=== PATIENT | female | born 1935 | race Asian ===

== ENCOUNTER 2022-08-19 10:11 | Emergency (ER) | payer OTHER, MEDICAID ==
[~2022-08-19] VITALS: Ht 154.9 cm; Wt 70.8 kg
[2022-08-19 10:34] VITALS: BP_SYST 155
--- NOTE | 2022-08-19 10:39 | NUR ---
PT BIB DAUGHTER IN LAW, AWAKE AND ALERT AOX3, NO SOB. PT C/O PAIN TO BILATERAL LOWER EXTREMITY AFTER A MECHANICAL FALL AT HOME. PT DAUGHTER IN LAW STATED SHE FOUND HER NEXT TO COUGH AT HOME AROUND 0730. PT STATES PAIN 12/03. PT DENIES N/V. PT HAS HX OF DEMENTIAS, DM2, HTN.
--- NOTE | 2022-08-19 10:41 | NUR ---
MD DR COBURN AT BEDSIDE
[2022-08-19] MEDS ORDERED: ACETAMINOPHEN 500 MG TABLET PO ONE (11:00)
[2022-08-19 11:53] LABS: BASOPHILS # (AUTO) 0.1 K/uL (0.0-0.2); EOSINOPHILS # (AUTO) 0.2 K/uL (0.0-0.4); HEMOGLOBIN 13.7 g/dL (12.0-16.0); LYMPHOCYTES # (AUTO) 2.6 K/uL (1.0-5.5); LYMPHOCYTES % (AUTO) 35.5 % (20.5-51.5); MEAN CORPUSCULAR HEMOGLOBIN 30 pg (27-31); MEAN CORPUSCULAR HGB CONC 33 % (32-36); MEAN CORPUSCULAR VOLUME 90 fL (79.0-98.0); MONOCYTES # (AUTO) 0.7 K/uL (0.0-1.0); MONOCYTES % (AUTO) 9.1 % (1.7-9.3); NEUTROPHILS # (AUTO) 3.8 K/uL (1.8-7.7); NEUTROPHILS % (AUTO) 51.4 % (40.0-70.0); PLATELET COUNT (AUTO) 328 K/uL (130-430); RED BLOOD CELL COUNT(AUTO) 4.57 MIL/uL (4.2-6.2); WHITE BLOOD COUNT (AUTO) 7.4 K/uL (4.8-10.8)
[2022-08-19 11:55] LABS: ANION GAP 8 (5-15); CALCIUM 8.6 mg/dL (8.4-11.0); CHLORIDE 99 mmol/L (98-107); CREATININE 0.94 mg/dL (0.55-1.30); GLUCOSE 230 mg/dL (70-99); UREA NITROGEN, BLOOD 16 mg/dL (8-21)
[2022-08-19 12:00] LABS: ALANINE AMINOTRANSFERASE 13 U/L (12-78); ALBUMIN 3.6 g/dL (3.4-4.8); ASPARTATE AMINOTRANSFERASE 23 U/L (10-37); TOTAL BILIRUBIN 0.6 mg/dL (0.0-1.0)
[2022-08-19 12:19] LABS: BILIRUBIN,URINE NEGATIVE (NEGATIVE); BLOOD, URINE NEGATIVE (NEGATIVE); CLARITY/URINE CLEAR (CLEAR); COLOR,URINE YELLOW (YELLOW); GLUCOSE,URINE 3+ (NEGATIVE); KETONES,URINE NEGATIVE (NEGATIVE); LEUKOCYTE ESTERASE ,URINE NEGATIVE (NEGATIVE); NITRITE, URINE NEGATIVE (NEGATIVE); PROTEIN URINE NEGATIVE (NEGATIVE); UROBILINOGEN,URINE 0.2 (0.2-1.0)
[2022-08-19 12:31] LABS: BACTERIA,URINE RARE /HPF (None Seen); RBC,URINE NONE SEEN /HPF (0-3); WBC,URINE 0-3 /HPF (0-3)
[2022-08-19 14:15] VITALS: BP_SYST 135
--- NOTE | 2022-08-19 14:16 | NUR ---
Patient given written and verbal discharge instructions and verbalizes understanding. ER MD COBURN discussed with patient the results and treatment provided. Patient in stable condition. ID arm band removed. Patient educated on pain management and to follow up with PMD. Pain Scale 4/10. Opportunity for questions provided and answered. Medication side effect fact sheet provided.
--- NOTE | 2022-08-20 19:07 | NUR ---
CALL AND LEFT VM FOR RETURN TO ER DUE TO POSITIVE BLOOD CULTURES.
== END 2022-08-19 14:16 | disposition home or self-care (01) ==
LOC: SED 10:11
DX: Z04.3 Encounter for examination and observation following other accident (principal); E11.9 Type 2 diabetes mellitus without complications; I10 Essential (primary) hypertension; E78.5 Hyperlipidemia, unspecified; Z79.899 Other long term (current) drug therapy
CPT/HCPCS: 36415; 70450-TC; 71045; 72125-TC; 72192-TC; 76376; 80053; 81000; 83605; 85025; 87040; 87186-TC; 93005; 99285

== ENCOUNTER 2022-10-17 18:20 | Inpatient (IN) | payer OTHER, MEDICAID ==
[~2022-10-17] VITALS: Ht 160 cm; Wt 73.5 kg
[2022-10-17 18:36] VITALS: BP_SYST 133; PULSE 99; RESP 16; TEMP 97.8; O2SAT 97
[2022-10-17 20:34] LABS: BASOPHILS # (AUTO) 0.1 K/uL (0.0-0.2); BASOPHILS % (AUTO) 0.6 % (0.0-2.0); EOSINOPHILS # (AUTO) 0.2 K/uL (0.0-0.4); EOSINOPHILS % (AUTO) 1.9 % (0.0-4.0); HEMATOCRIT 39.2 % (36-48); LYMPHOCYTES # (AUTO) 2.4 K/uL (1.0-5.5); LYMPHOCYTES % (AUTO) 22.1 % (20.5-51.5); MEAN CORPUSCULAR HEMOGLOBIN 29 pg (27-31); MEAN CORPUSCULAR HGB CONC 33 % (32-36); MEAN CORPUSCULAR VOLUME 88 fL (79.0-98.0); MONOCYTES # (AUTO) 0.9 K/uL (0.0-1.0); NEUTROPHILS # (AUTO) 7.3 K/uL (1.8-7.7); NEUTROPHILS % (AUTO) 67.4 % (40.0-70.0); PLATELET COUNT (AUTO) 310 K/uL (130-430); RED BLOOD CELL COUNT(AUTO) 4.44 MIL/uL (4.2-6.2); WHITE BLOOD COUNT (AUTO) 10.9 K/uL (4.8-10.8)
[2022-10-17 20:42] LABS: ANION GAP 12 (5-15); CALCIUM 8.8 mg/dL (8.4-11.0); CHLORIDE 100 mmol/L (98-107); CREATININE 1.29 mg/dL (0.55-1.30); GLUCOSE 199 mg/dL (70-99); UREA NITROGEN, BLOOD 25 mg/dL (8-21)
[2022-10-17 20:49] LABS: ALANINE AMINOTRANSFERASE 92 U/L (12-78); ALBUMIN 3.6 g/dL (3.4-4.8); ASPARTATE AMINOTRANSFERASE 162 U/L (10-37); TOTAL BILIRUBIN 0.9 mg/dL (0.0-1.0)
[2022-10-17 20:55] LABS: BLOOD, URINE 2+ (NEGATIVE); CLARITY/URINE CLEAR (CLEAR); COLOR,URINE YELLOW (YELLOW); GLUCOSE,URINE 3+ (NEGATIVE); KETONES,URINE 1+ (NEGATIVE); LEUKOCYTE ESTERASE ,URINE NEGATIVE (NEGATIVE); NITRITE, URINE NEGATIVE (NEGATIVE); PH,URINE 5.5 (5.0-8.0); PROTEIN URINE TRACE (NEGATIVE); UROBILINOGEN,URINE 0.2 (0.2-1.0)
[2022-10-17 20:57] LABS: BILIRUBIN,URINE 1+ (NEGATIVE)
[2022-10-17 20:58] LABS: BACTERIA,URINE FEW /HPF (None Seen); FINE GRANULAR CASTS,URINE 0-10 /LPF (None Seen); MUCUS,URINE None Seen /LPF (None Seen); RBC,URINE NONE SEEN /HPF (0-3); WBC,URINE 0-3 /HPF (0-3)
[2022-10-17] MEDS ORDERED: NACL 0.9% 1,000 ML IV ONE (21:00)
[2022-10-17] MEDS ORDERED: D5/0.45 NS 1,000 ML IV ONE (22:30)
[2022-10-18] VITALS (7 sets, daily range): BP systolic 122–131; PULSE 80–90; RESP 18–20; TEMP 96.9–97.2; O2SAT 97–100
[2022-10-18] MEDS ORDERED: ONDANSETRON HCL 4 MG/2 ML VIAL IVP PRN (05:00)
[2022-10-18] MEDS: LORazepam 2 MG/ML VIAL IVP PRN ×2 (10:31→20:24)
[2022-10-19] VITALS (7 sets, daily range): BP systolic 100–149; PULSE 75–91; RESP 14–20; TEMP 96.6–98; O2SAT 92–96
[2022-10-19 06:00] LABS: BASOPHILS # (AUTO) 0.1 K/uL (0.0-0.2); BASOPHILS % (AUTO) 0.9 % (0.0-2.0); EOSINOPHILS # (AUTO) 0.3 K/uL (0.0-0.4); EOSINOPHILS % (AUTO) 3.9 % (0.0-4.0); HEMATOCRIT 40.9 % (36-48); HEMOGLOBIN 13.5 g/dL (12.0-16.0); LYMPHOCYTES # (AUTO) 2.2 K/uL (1.0-5.5); MEAN CORPUSCULAR HEMOGLOBIN 29 pg (27-31); MEAN CORPUSCULAR HGB CONC 33 % (32-36); MEAN CORPUSCULAR VOLUME 89 fL (79.0-98.0); MONOCYTES # (AUTO) 0.8 K/uL (0.0-1.0); NEUTROPHILS # (AUTO) 5.1 K/uL (1.8-7.7); NEUTROPHILS % (AUTO) 60.2 % (40.0-70.0); PLATELET COUNT (AUTO) 328 K/uL (130-430); RED CELL DISTRIBUTION WIDTH 14.9 % (9.0-15.0); WHITE BLOOD COUNT (AUTO) 8.4 K/uL (4.8-10.8)
[2022-10-19 06:34] LABS: ALANINE AMINOTRANSFERASE 77 U/L (12-78); ALBUMIN 3.3 g/dL (3.4-4.8); ANION GAP 13 (5-15); ASPARTATE AMINOTRANSFERASE 85 U/L (10-37); CALCIUM 8.6 mg/dL (8.4-11.0); CHLORIDE 99 mmol/L (98-107); CREATININE 0.71 mg/dL (0.55-1.30); GLUCOSE 132 mg/dL (70-99); PHOSPHORUS 2.5 mg/dL (2.7-4.5); TOTAL BILIRUBIN 0.8 mg/dL (0.0-1.0); UREA NITROGEN, BLOOD 6 mg/dL (8-21)
[2022-10-19] MEDS ORDERED: K PHOS 30 MM in NS 250 ML IV ONE (15:00)
[2022-10-20 01:51] VITALS: BP_SYST 107; PULSE 95; RESP 16; TEMP 98.6; O2SAT 91
[2022-10-20 05:25] LABS: BASOPHILS # (AUTO) 0.1 K/uL (0.0-0.2); BASOPHILS % (AUTO) 0.7 % (0.0-2.0); EOSINOPHILS # (AUTO) 0.1 K/uL (0.0-0.4); EOSINOPHILS % (AUTO) 1.2 % (0.0-4.0); HEMOGLOBIN 13.7 g/dL (12.0-16.0); LYMPHOCYTES # (AUTO) 1.6 K/uL (1.0-5.5); LYMPHOCYTES % (AUTO) 17.5 % (20.5-51.5); MEAN CORPUSCULAR HEMOGLOBIN 29 pg (27-31); MEAN CORPUSCULAR HGB CONC 33 % (32-36); MEAN CORPUSCULAR VOLUME 90 fL (79.0-98.0); MONOCYTES % (AUTO) 11.1 % (1.7-9.3); NEUTROPHILS # (AUTO) 6.5 K/uL (1.8-7.7); NEUTROPHILS % (AUTO) 69.5 % (40.0-70.0); PLATELET COUNT (AUTO) 335 K/uL (130-430); RED BLOOD CELL COUNT(AUTO) 4.69 MIL/uL (4.2-6.2); RED CELL DISTRIBUTION WIDTH 15.2 % (9.0-15.0); WHITE BLOOD COUNT (AUTO) 9.3 K/uL (4.8-10.8)
[2022-10-20 05:52] LABS: ALANINE AMINOTRANSFERASE 61 U/L (12-78); ANION GAP 18 (5-15); ASPARTATE AMINOTRANSFERASE 45 U/L (10-37); CALCIUM 8.1 mg/dL (8.4-11.0); CHLORIDE 101 mmol/L (98-107); CREATININE 0.96 mg/dL (0.55-1.30); GLUCOSE 113 mg/dL (70-99); TOTAL BILIRUBIN 0.7 mg/dL (0.0-1.0); UREA NITROGEN, BLOOD 12 mg/dL (8-21)
[2022-10-20 08:07] LABS: FOLATE (FOLIC ACID) >20.0 ng/mL (>3.0)
[2022-10-20] MEDS ORDERED: CHOL500052 PO (08:12)
[2022-10-20] MEDS ORDERED: QUET50TA24 PO (08:12)
[2022-10-20] MEDS ORDERED: AMLO5TAB92 PO (08:12)
[2022-10-20] MEDS ORDERED: BIMA2.5D5 EACH EYE (08:12)
[2022-10-20] MEDS ORDERED: ATOR10TA68 PO (08:12)
[2022-10-20] MEDS ORDERED: SITA100T11 PO (08:12)
[2022-10-20] MEDS ORDERED: RISP1TAB98 PO (08:12)
[2022-10-20] MEDS ORDERED: METF-381 PO (08:12)
[2022-10-20] MEDS ORDERED: EMPA10TA PO (08:12)
[2022-10-20] MEDS ORDERED: DORZ10DR10 EACH EYE (08:12)
[2022-10-20] MEDS ORDERED: GLIP2.5T3 PO (08:12)
[2022-10-20] MEDS ORDERED: MEMA14CA5 PO (08:12)
[2022-10-20] MEDS: LORazepam 2 MG/ML VIAL IVP PRN ×2 (09:11→23:22)
[2022-10-20] MEDS: 0.45% NACL 1,000 ML IV SCH ×2 (11:30→20:05)
[2022-10-20 12:46] VITALS: BP_SYST 139; PULSE 105; RESP 18; TEMP 97.3
[2022-10-20 13:18] VITALS: O2SAT 96
[2022-10-20 14:06] LABS: ANTI NUCLEAR AB WITH REFLEX Negative (Negative)
[2022-10-20 16:49] VITALS: BP_SYST 131; PULSE 100; RESP 17; TEMP 97.9; O2SAT 96
[2022-10-20 22:00] VITALS: O2SAT 95
[2022-10-21 01:09] VITALS: BP_SYST 146; PULSE 92; RESP 17; TEMP 97.6; O2SAT 94
[2022-10-21] MEDS: 0.45% NACL 1,000 ML IV SCH ×2 (05:34→14:37)
[2022-10-21 05:39] LABS: ANION GAP 15 (5-15); CALCIUM 8.4 mg/dL (8.4-11.0); CHLORIDE 103 mmol/L (98-107); CREATININE 0.99 mg/dL (0.55-1.30); GLUCOSE 135 mg/dL (70-99); UREA NITROGEN, BLOOD 13 mg/dL (8-21)
[2022-10-21] MEDS: LORazepam 2 MG/ML VIAL IVP PRN (05:49)
[2022-10-21 06:03] LABS: BASOPHILS # (AUTO) 0.1 K/uL (0.0-0.2); BASOPHILS % (AUTO) 0.5 % (0.0-2.0); EOSINOPHILS # (AUTO) 0.1 K/uL (0.0-0.4); EOSINOPHILS % (AUTO) 0.6 % (0.0-4.0); HEMATOCRIT 41.8 % (36-48); HEMOGLOBIN 13.8 g/dL (12.0-16.0); LYMPHOCYTES # (AUTO) 1.7 K/uL (1.0-5.5); LYMPHOCYTES % (AUTO) 15.5 % (20.5-51.5); MEAN CORPUSCULAR HEMOGLOBIN 29 pg (27-31); MEAN CORPUSCULAR HGB CONC 33 % (32-36); MEAN CORPUSCULAR VOLUME 89 fL (79.0-98.0); MONOCYTES # (AUTO) 1.7 K/uL (0.0-1.0); MONOCYTES % (AUTO) 15.7 % (1.7-9.3); NEUTROPHILS # (AUTO) 7.2 K/uL (1.8-7.7); NEUTROPHILS % (AUTO) 67.7 % (40.0-70.0); PLATELET COUNT (AUTO) 326 K/uL (130-430); WHITE BLOOD COUNT (AUTO) 10.7 K/uL (4.8-10.8)
[2022-10-21 07:10] VITALS: BP_SYST 154; PULSE 82; RESP 16; TEMP 97.8; O2SAT 97
[2022-10-21 07:20] VITALS: O2SAT 96
[2022-10-21] MEDS ORDERED: MEMANTINE HCL 7 MG CAP.SPR.24 PO SCH (10:00)
[2022-10-21 12:00] VITALS: BP_SYST 161; PULSE 99; RESP 17; TEMP 97.1; O2SAT 98
[2022-10-21] MEDS ORDERED: amLODIPine BESYLATE 5 MG TABLET PO ONE (12:00)
[2022-10-21] MEDS ORDERED: EMPAGLIFLOZIN 10 MG TABLET PO ONE (12:00)
[2022-10-21] MEDS ORDERED: glipiZIDE XL 2.5 MG/TAB (GLUCOTROL XL) PO ONE (12:00)
[2022-10-21] MEDS ORDERED: CHOLECALCIFEROL (VITAMIN D3) 5,000 UNIT TABLET PO ONE (12:00)
[2022-10-21 16:14] VITALS: BP_SYST 135; PULSE 88; RESP 16; TEMP 97.1; O2SAT 97
[2022-10-21 20:00] VITALS: BP_SYST 138; PULSE 101; RESP 19; TEMP 97.8; O2SAT 94
[2022-10-21] MEDS ORDERED: ATORVASTATIN 10 MG TABLET PO SCH (21:00)
[2022-10-21] MEDS ORDERED: QUEtiapine FUMARATE 25 MG TABLET PO SCH (21:00)
[2022-10-21] MEDS ORDERED: risperiDONE 1 MG TABLET (RisperDAL) PO SCH (21:00)
[2022-10-21] MEDS: MEMANTINE HCL 5 MG TABLET PO SCH (22:09)
[2022-10-21] MEDS: metFORMIN HCL 500 MG TABLET PO SCH (22:09)
[2022-10-22] VITALS (7 sets, daily range): BP systolic 98–154; PULSE 100–105; RESP 16–18; TEMP 97.6–99.3; O2SAT 94–99
[2022-10-22] MEDS: 0.45% NACL 1,000 ML IV SCH (04:02)
[2022-10-22] MEDS ORDERED: PANTOPRAZOLE SODIUM 40 MG/VIAL (PROTONIX) IVP SCH (05:30)
[2022-10-22] MEDS: D5/0.45 NS 1,000 ML IV SCH ×2 (05:37→14:25)
[2022-10-22 06:22] LABS: BASOPHILS # (AUTO) 0.1 K/uL (0.0-0.2); BASOPHILS % (AUTO) 0.7 % (0.0-2.0); HEMATOCRIT 44.4 % (36-48); HEMOGLOBIN 14.5 g/dL (12.0-16.0); LYMPHOCYTES # (AUTO) 1.2 K/uL (1.0-5.5); LYMPHOCYTES % (AUTO) 8.2 % (20.5-51.5); MEAN CORPUSCULAR HEMOGLOBIN 30 pg (27-31); MEAN CORPUSCULAR HGB CONC 33 % (32-36); MEAN CORPUSCULAR VOLUME 91 fL (79.0-98.0); NEUTROPHILS # (AUTO) 12.1 K/uL (1.8-7.7); NEUTROPHILS % (AUTO) 84.1 % (40.0-70.0); PLATELET COUNT (AUTO) 373 K/uL (130-430); RED BLOOD CELL COUNT(AUTO) 4.88 MIL/uL (4.2-6.2); RED CELL DISTRIBUTION WIDTH 15.5 % (9.0-15.0); WHITE BLOOD COUNT (AUTO) 14.4 K/uL (4.8-10.8)
[2022-10-22 06:32] LABS: ANION GAP 26 (5-15); CALCIUM 9.1 mg/dL (8.4-11.0); CHLORIDE 96 mmol/L (98-107); CREATININE 1.07 mg/dL (0.55-1.30); GLUCOSE 150 mg/dL (74-106); UREA NITROGEN, BLOOD 14 mg/dL (8-21)
[2022-10-22] MEDS ORDERED: amLODIPine BESYLATE 5 MG TABLET PO SCH (09:00)
[2022-10-22] MEDS ORDERED: glipiZIDE XL 2.5 MG/TAB (GLUCOTROL XL) PO SCH (09:00)
[2022-10-22] MEDS ORDERED: EMPAGLIFLOZIN 10 MG TABLET PO SCH (09:00)
[2022-10-22] MEDS: MEMANTINE HCL 5 MG TABLET PO SCH (09:00)
[2022-10-22] MEDS ORDERED: CHOLECALCIFEROL (VITAMIN D3) 5,000 UNIT TABLET PO SCH (09:00)
[2022-10-22] MEDS: metFORMIN HCL 500 MG TABLET PO SCH (09:00)
[2022-10-22] MEDS ORDERED: COMMUNICATION ORDER XX ONE (10:15)
== END 2022-10-22 21:10 | DRG 641 ==
LOC: SED 18:20 → SMU 22:28
PROVIDERS: ADMIT Preventive Medicine Preventive Medicine/Occupational Environmental Medicine; ATTEND Specialist
PROC: 4A10X4Z Monitoring of Central Nervous Electrical Activity, External Approach (ICD-10-PCS; principal; 2022-10-21)
DX: E86.0 Dehydration (principal); E78.5 Hyperlipidemia, unspecified; F03.90 Unspecified dementia, unspecified severity, without behavioral disturbance, psychotic disturbance, mood disturbance, and anxiety; I10 Essential (primary) hypertension; R13.10 Dysphagia, unspecified; E87.6 Hypokalemia; K76.0 Fatty (change of) liver, not elsewhere classified; E11.65 Type 2 diabetes mellitus with hyperglycemia; D72.829 Elevated white blood cell count, unspecified; R62.7 Adult failure to thrive; Z91.81 History of falling; Z68.28 Body mass index [BMI] 28.0-28.9, adult
CPT/HCPCS: 36415; 70450-TC; 70551; 71045; 72170-TC; 76376; 76700-TC; 80048; 80053; 81000; 82607; 82746; 82962; 83735; 83880; 84100; 84484; 85025; 86038; 92610-GN; 93005; 95816; 96360; 97110-GP; 99285; C9113; J2060; J7030; J7050

== ENCOUNTER 2022-10-31 07:04 | Inpatient (IN) | payer OTHER, MEDICAID ==
[~2022-10-31] VITALS: Ht 160 cm; Wt 71.7 kg
[2022-10-31] VITALS (16 sets, daily range): BP systolic 104–136; PULSE 79–116; RESP 16–26; TEMP 97.2–98.4; O2SAT 94–99
[~2022-10-31 07:04] MED LIST: AMLO5TAB92 PO; ATOR10TA68 PO; BIMA2.5D5 EACH EYE; CHOL500052 PO; DORZ10DR10 EACH EYE; EMPA10TA PO; GLIP2.5T3 PO; MEMA14CA5 PO; METF-381 PO; QUET50TA24 PO; RISP1TAB98 PO; SITA100T11 PO
[2022-10-31 07:43] LABS: BASOPHILS % (AUTO) 0.2 % (0.0-2.0); HEMATOCRIT 43.4 % (36-48); HEMOGLOBIN 13.2 g/dL (12.0-16.0); LYMPHOCYTES % (AUTO) 6.3 % (20.5-51.5); MEAN CORPUSCULAR HEMOGLOBIN 28 pg (27-31); MEAN CORPUSCULAR HGB CONC 31 % (32-36); MEAN CORPUSCULAR VOLUME 92 fL (79.0-98.0); MONOCYTES # (AUTO) 1.2 K/uL (0.0-1.0); MONOCYTES % (AUTO) 7.7 % (1.7-9.3); NEUTROPHILS # (AUTO) 13.4 K/uL (1.8-7.7); NEUTROPHILS % (AUTO) 85.8 % (40.0-70.0); PLATELET COUNT (AUTO) 394 K/uL (130-430); RED BLOOD CELL COUNT(AUTO) 4.69 MIL/uL (4.2-6.2); RED CELL DISTRIBUTION WIDTH 17.6 % (9.0-15.0); WHITE BLOOD COUNT (AUTO) 15.6 K/uL (4.8-10.8)
[2022-10-31 07:55] LABS: INR 1.1 (0.8-1.2)
[2022-10-31 08:00] LABS: ALANINE AMINOTRANSFERASE 18 U/L (12-78); ALBUMIN 2.7 g/dL (3.4-4.8); ASPARTATE AMINOTRANSFERASE 18 U/L (10-37); CALCIUM 8.5 mg/dL (8.4-11.0); CARBON DIOXIDE 20 mmol/L (23-29); CREATINE KINASE, TOTAL 114 U/L (26-192); CREATININE 3.54 mg/dL (0.55-1.30); SALICYLATE 3 mg/dL (3-30); TOTAL BILIRUBIN 0.5 mg/dL (0.0-1.0); TOTAL PROTEIN, SERUM 6.8 g/dL (6.4-8.3); UREA NITROGEN, BLOOD 84 mg/dL (8-21)
[2022-10-31 08:48] LABS: POTASSIUM 4.9 mmol/L (3.5-5.1)
[2022-10-31 08:49] LABS: BILIRUBIN,URINE NEGATIVE (NEGATIVE); BLOOD, URINE NEGATIVE (NEGATIVE); CLARITY/URINE CLEAR (CLEAR); COLOR,URINE YELLOW (YELLOW); GLUCOSE,URINE 3+ (NEGATIVE); KETONES,URINE TRACE (NEGATIVE); LEUKOCYTE ESTERASE ,URINE NEGATIVE (NEGATIVE); NITRITE, URINE NEGATIVE (NEGATIVE); PROTEIN URINE TRACE (NEGATIVE); UROBILINOGEN,URINE 0.2 (0.2-1.0)
[2022-10-31] MEDS ORDERED: PIPERACILLIN/TAZO 4.5GM/DEX-IS 100 ML IV SCH (09:00)
[2022-10-31] MEDS ORDERED: NACL 0.9% 1,000 ML IV PRN (09:00)
[2022-10-31] MEDS ORDERED: VANCOMYCIN HCL 1,000 MG in NS 250 ML IV ONE (09:15)
[2022-10-31] MEDS ORDERED: VANCOMYCIN HCL 1000 MG/VIAL IV ONE (09:26)
[2022-10-31 09:27] LABS: CHLORIDE 120 mmol/L (98-107)
[2022-10-31 09:28] LABS: BARBITURATE, URINE NEGATIVE (NEG <=200)
[2022-10-31 09:29] LABS: BENZODIAZEPINE, URINE NEGATIVE (NEG <=150); CANNABINOID, URINE NEGATIVE (NEG <=50); COCAINE, URINE NEGATIVE (NEG <=150); METHAMPHETAMINES SCREEN,URINE NEGATIVE (NEG <=500); OPIATE, URINE NEGATIVE (NEG <=100); PHENCYCLIDINE SCREEN,URINE NEGATIVE (NEG <=25); URINE AMPHETAMINE NEGATIVE (NEG <=500); URINE METHADONE NEGATIVE (NEG <=200); URINE OXYCODONE SCREEN NEGATIVE (NEG <=100); URINE PROPOXYPHENE SCREEN NEGATIVE (NEG <=300)
[2022-10-31 09:34] LABS: UR TRICYCLIC ANTIDEPRESSANTS POSITIVE (NEG <=300)
[2022-10-31 09:36] LABS: ACETAMINOPHEN < 1 ug/mL (1-30); ALCOHOL, BLOOD < 3 mg/dL (<10)
[2022-10-31] MEDS ORDERED: NACL 0.9% 1,000 ML IV ONE (10:00)
[2022-10-31 10:19] LABS: ANION GAP 25 (5-15); SODIUM SERUM 165 mmol/L (136-145)
[2022-10-31 10:20] LABS: GLUCOSE 638 mg/dL (74-106)
[2022-10-31 10:25] LABS: ACETONE, SERUM MODERATE (NEGATIVE)
[2022-10-31 10:34] LABS: RBC,URINE 0-3 /HPF (0-3)
[2022-10-31 10:35] LABS: BACTERIA,URINE MODERATE /HPF (None Seen)
[2022-10-31 10:38] LABS: YEAST,URINE Few /HPF (None Seen)
[2022-10-31 10:39] LABS: MUCUS,URINE None Seen /LPF (None Seen)
[2022-10-31] MEDS ORDERED: INSULIN REGULAR, HUMAN 10 UNITS/0.1 ML, 3 ML VIAL IVP ONE (10:45)
[2022-10-31] MEDS ORDERED: DEXTROSE 50% JECT 50 ML DISP.SYRIN IVP PRN (12:15)
[2022-10-31] MEDS ORDERED: 0.45% NACL 1,000 ML IV ONE (12:30)
[2022-10-31 14:24] LABS: BLOOD GAS PCO2 33.5 mmHg (35.0-45.0); BLOOD GAS PH 7.347 (7.350-7.450); BLOOD GAS PO2 73.2 mmHg (75.0-100.0)
[2022-10-31 14:25] LABS: BLOOD GAS BASE EXCESS -6.6 mmol/L (-3.0-3.0)
[2022-10-31 14:26] LABS: ABG O2 SAT% ESTIMATE 94.2 % (94.0-100.0); ALLEN'S TEST POSITIVE (P)
[2022-10-31 14:29] LABS: ANION GAP 24 (5-15); CALCIUM 8.2 mg/dL (8.4-11.0); CARBON DIOXIDE 18 mmol/L (23-29); CREATININE 3.45 mg/dL (0.55-1.30); UREA NITROGEN, BLOOD 83 mg/dL (8-21)
[2022-10-31] MEDS ORDERED: ONDANSETRON HCL 4 MG/2 ML VIAL IVP PRN (14:30)
[2022-10-31] MEDS ORDERED: ACETAMINOPHEN 650 MG SUPP.RECT RC PRN (14:30)
[2022-10-31] MEDS ORDERED: KCL 20 mEq in 0.45% NS 1000 mL 1,000 ML IV PRN (14:45)
[2022-10-31] MEDS: INSULIN REGULAR, HUMAN 100 UNITS in NS 99 ML IV PRN ×2 (14:47)
[2022-10-31 14:49] LABS: CHLORIDE 122 mmol/L (98-107)
[2022-10-31 14:50] LABS: GLUCOSE 567 mg/dL (74-106); SODIUM SERUM 164 mmol/L (136-145)
[2022-10-31] MEDS: DORZOLAMIDE HCL/TIMOLOL MAL. 10 ML EYE DROPS (COSOPT) EACH EYE SCH ×2 (16:39→20:21)
[2022-10-31] MEDS: KCL 20 mEq in 0.45% NS 1000 mL 1,000 ML IV SCH (16:44)
[2022-10-31 16:45] LABS: ANION GAP 18 (5-15); CALCIUM 8.7 mg/dL (8.4-11.0); CARBON DIOXIDE 20 mmol/L (23-29); CREATININE 3.42 mg/dL (0.55-1.30); POTASSIUM 3.8 mmol/L (3.5-5.1); UREA NITROGEN, BLOOD 87 mg/dL (8-21)
[2022-10-31 17:18] LABS: CHLORIDE 124 mmol/L (98-107); GLUCOSE 485 mg/dL (74-106); SODIUM SERUM 162 mmol/L (136-145)
[2022-10-31] MEDS ORDERED: PIPERACILLIN/TAZO 3.375/DEX-IS 50 ML IV SCH (18:00)
[2022-10-31] MEDS: ENOXAPARIN SODIUM 30 MG/0.3 ML SYRINGE SUBCUT SCH (20:18)
[2022-10-31] MEDS: PANTOPRAZOLE SODIUM 40 MG/VIAL (PROTONIX) IVP SCH (20:18)
[2022-10-31] MEDS: LATANOPROST 2.5 ML DROPS (XALATAN) EACH EYE SCH (20:22)
[2022-10-31] MEDS: PIPERACILLIN/TAZOBACTAM 2.25 GM/ DEX-IS 50 ML PREMIX IV SCH (20:22)
[2022-10-31] MEDS ORDERED: BIMATOPROST 0.01%, 2.5 ML EYE DROPS EACH EYE SCH (21:00)
[2022-10-31 21:22] LABS: ANION GAP 12 (5-15); CALCIUM 8.7 mg/dL (8.4-11.0); CARBON DIOXIDE 23 mmol/L (23-29); CREATININE 3.08 mg/dL (0.55-1.30); GLUCOSE 237 mg/dL (74-106); POTASSIUM 3.8 mmol/L (3.5-5.1); UREA NITROGEN, BLOOD 83 mg/dL (8-21)
[2022-10-31 21:25] LABS: CHLORIDE 127 mmol/L (98-107); SODIUM SERUM 162 mmol/L (136-145)
[2022-11-01] VITALS (22 sets, daily range): BP systolic 98–181; PULSE 67–97; RESP 15–28; TEMP 96.4–98.4; O2SAT 92–99
[2022-11-01] MEDS: KCL 20 mEq in 0.45% NS 1000 mL 1,000 ML IV SCH ×3 (01:01→23:49)
[2022-11-01 01:24] LABS: ANION GAP 12 (5-15); CALCIUM 8.6 mg/dL (8.4-11.0); CARBON DIOXIDE 24 mmol/L (23-29); CREATININE 3.04 mg/dL (0.55-1.30); GLUCOSE 233 mg/dL (74-106); POTASSIUM 3.9 mmol/L (3.5-5.1); UREA NITROGEN, BLOOD 83 mg/dL (8-21)
[2022-11-01 01:31] LABS: CHLORIDE 128 mmol/L (98-107); SODIUM SERUM 164 mmol/L (136-145)
[2022-11-01] MEDS: PIPERACILLIN/TAZOBACTAM 2.25 GM/ DEX-IS 50 ML PREMIX IV SCH ×3 (05:10→23:50)
[2022-11-01 05:20] LABS: BASOPHILS # (AUTO) 0.1 K/uL (0.0-0.2); BASOPHILS % (AUTO) 0.4 % (0.0-2.0); HEMATOCRIT 42.5 % (36-48); HEMOGLOBIN 13.4 g/dL (12.0-16.0); LYMPHOCYTES # (AUTO) 1.6 K/uL (1.0-5.5); MEAN CORPUSCULAR HEMOGLOBIN 29 pg (27-31); MEAN CORPUSCULAR HGB CONC 32 % (32-36); MEAN CORPUSCULAR VOLUME 91 fL (79.0-98.0); MONOCYTES # (AUTO) 1.7 K/uL (0.0-1.0); MONOCYTES % (AUTO) 8.2 % (1.7-9.3); NEUTROPHILS # (AUTO) 17.2 K/uL (1.8-7.7); NEUTROPHILS % (AUTO) 83.4 % (40.0-70.0); PLATELET COUNT (AUTO) 305 K/uL (130-430); RED BLOOD CELL COUNT(AUTO) 4.68 MIL/uL (4.2-6.2); RED CELL DISTRIBUTION WIDTH 17.4 % (9.0-15.0); WHITE BLOOD COUNT (AUTO) 20.6 K/uL (4.8-10.8)
[2022-11-01 05:51] LABS: ALANINE AMINOTRANSFERASE 25 U/L (12-78); ALBUMIN 2.1 g/dL (3.4-4.8); ANION GAP 14 (5-15); ASPARTATE AMINOTRANSFERASE 35 U/L (10-37); CALCIUM 8.3 mg/dL (8.4-11.0); CARBON DIOXIDE 23 mmol/L (23-29); CREATININE 2.97 mg/dL (0.55-1.30); GLUCOSE 229 mg/dL (74-106); POTASSIUM 3.6 mmol/L (3.5-5.1); TOTAL BILIRUBIN 0.5 mg/dL (0.0-1.0); TOTAL PROTEIN, SERUM 6.4 g/dL (6.4-8.3); UREA NITROGEN, BLOOD 85 mg/dL (8-21)
[2022-11-01 05:54] LABS: CHLORIDE 127 mmol/L (98-107); SODIUM SERUM 164 mmol/L (136-145)
[2022-11-01] MEDS: INSULIN REGULAR, HUMAN 100 UNITS in NS 99 ML IV PRN ×10 (08:58→23:59)
[2022-11-01] MEDS: PANTOPRAZOLE SODIUM 40 MG/VIAL (PROTONIX) IVP SCH ×2 (10:44→23:47)
[2022-11-01] MEDS: DORZOLAMIDE HCL/TIMOLOL MAL. 10 ML EYE DROPS (COSOPT) EACH EYE SCH ×3 (10:45→23:00)
[2022-11-01 14:38] LABS: ANION GAP 16 (5-15); CALCIUM 8.4 mg/dL (8.4-11.0); CARBON DIOXIDE 22 mmol/L (23-29); CREATININE 2.94 mg/dL (0.55-1.30); GLUCOSE 222 mg/dL (74-106); POTASSIUM 3.8 mmol/L (3.5-5.1); UREA NITROGEN, BLOOD 87 mg/dL (8-21)
[2022-11-01 14:49] LABS: CHLORIDE 126 mmol/L (98-107); SODIUM SERUM 164 mmol/L (136-145)
[2022-11-01] MEDS: LATANOPROST 2.5 ML DROPS (XALATAN) EACH EYE SCH (21:00)
[2022-11-01 22:22] LABS: ANION GAP 14 (5-15); CALCIUM 8.5 mg/dL (8.4-11.0); CARBON DIOXIDE 24 mmol/L (23-29); CREATININE 2.84 mg/dL (0.55-1.30); GLUCOSE 234 mg/dL (74-106); POTASSIUM 3.5 mmol/L (3.5-5.1); UREA NITROGEN, BLOOD 82 mg/dL (8-21)
[2022-11-01 22:24] LABS: CHLORIDE 126 mmol/L (98-107); SODIUM SERUM 164 mmol/L (136-145)
[2022-11-01] MEDS: CARVEDILOL 12.5 MG TABLET (COREG) NG SCH (23:47)
[2022-11-01] MEDS: ENOXAPARIN SODIUM 30 MG/0.3 ML SYRINGE SUBCUT SCH (23:48)
[2022-11-02] VITALS (24 sets, daily range): BP systolic 89–132; PULSE 56–77; RESP 11–24; TEMP 98.2–98.6; O2SAT 91–100
[2022-11-02 04:36] LABS: BASOPHILS # (AUTO) 0.1 K/uL (0.0-0.2); BASOPHILS % (AUTO) 0.5 % (0.0-2.0); EOSINOPHILS # (AUTO) 0.1 K/uL (0.0-0.4); EOSINOPHILS % (AUTO) 0.5 % (0.0-4.0); HEMATOCRIT 38.3 % (36-48); LYMPHOCYTES # (AUTO) 1.6 K/uL (1.0-5.5); LYMPHOCYTES % (AUTO) 8.3 % (20.5-51.5); MEAN CORPUSCULAR HEMOGLOBIN 28 pg (27-31); MEAN CORPUSCULAR HGB CONC 31 % (32-36); MEAN CORPUSCULAR VOLUME 91 fL (79.0-98.0); MONOCYTES % (AUTO) 5.4 % (1.7-9.3); NEUTROPHILS # (AUTO) 16.2 K/uL (1.8-7.7); NEUTROPHILS % (AUTO) 85.3 % (40.0-70.0); PLATELET COUNT (AUTO) 240 K/uL (130-430); RED BLOOD CELL COUNT(AUTO) 4.21 MIL/uL (4.2-6.2); RED CELL DISTRIBUTION WIDTH 17.2 % (9.0-15.0)
[2022-11-02 04:55] LABS: ANION GAP 13 (5-15); CALCIUM 8.5 mg/dL (8.4-11.0); CARBON DIOXIDE 22 mmol/L (23-29); CREATININE 2.96 mg/dL (0.55-1.30); GLUCOSE 252 mg/dL (74-106); POTASSIUM 3.7 mmol/L (3.5-5.1); UREA NITROGEN, BLOOD 82 mg/dL (8-21)
[2022-11-02 04:58] LABS: CHLORIDE 126 mmol/L (98-107); SODIUM SERUM 161 mmol/L (136-145)
[2022-11-02] MEDS: PIPERACILLIN/TAZOBACTAM 2.25 GM/ DEX-IS 50 ML PREMIX IV SCH ×3 (05:17→23:02)
[2022-11-02] MEDS: PANTOPRAZOLE SODIUM 40 MG/VIAL (PROTONIX) IVP SCH ×2 (09:05→20:56)
[2022-11-02] MEDS: CARVEDILOL 12.5 MG TABLET (COREG) NG SCH ×2 (09:05→20:57)
[2022-11-02] MEDS: DORZOLAMIDE HCL/TIMOLOL MAL. 10 ML EYE DROPS (COSOPT) EACH EYE SCH ×3 (10:04→20:55)
[2022-11-02] MEDS: KCL 20 mEq in 0.45% NS 1000 mL 1,000 ML IV SCH (10:04)
[2022-11-02] MEDS ORDERED: D5W 1,000 ML IV SCH (13:45)
[2022-11-02] MEDS ORDERED: VANCOMYCIN HCL 750 MG in NS 250 ML IV SCH (15:00)
[2022-11-02] MEDS ORDERED: NYSTATIN 15 GM TOPICAL POWDER TP ONE (16:30)
[2022-11-02] MEDS: INSULIN REGULAR, HUMAN 100 UNITS/ML, 3 ML VIAL (humuLIN R) SUBCUT PRN ×2 (18:08→23:40)
[2022-11-02] MEDS: FLUCONAZOLE 100 mg/ NS 50 ML IV SCH (20:54)
[2022-11-02] MEDS: LATANOPROST 2.5 ML DROPS (XALATAN) EACH EYE SCH (20:56)
[2022-11-02] MEDS: ENOXAPARIN SODIUM 30 MG/0.3 ML SYRINGE SUBCUT SCH (20:58)
[2022-11-02] MEDS: NYSTATIN 15 GM TOPICAL POWDER TP SCH (20:59)
[2022-11-03] VITALS (24 sets, daily range): BP systolic 86–143; PULSE 48–71; RESP 9–21; TEMP 96–98.5; O2SAT 90–100
[2022-11-03 05:41] LABS: BASOPHILS % (AUTO) 0.2 % (0.0-2.0); EOSINOPHILS # (AUTO) 0.1 K/uL (0.0-0.4); EOSINOPHILS % (AUTO) 0.6 % (0.0-4.0); HEMATOCRIT 38.6 % (36-48); HEMOGLOBIN 12.2 g/dL (12.0-16.0); LYMPHOCYTES # (AUTO) 1.5 K/uL (1.0-5.5); LYMPHOCYTES % (AUTO) 8.5 % (20.5-51.5); MEAN CORPUSCULAR HEMOGLOBIN 28 pg (27-31); MEAN CORPUSCULAR HGB CONC 32 % (32-36); MEAN CORPUSCULAR VOLUME 90 fL (79.0-98.0); MONOCYTES # (AUTO) 0.8 K/uL (0.0-1.0); MONOCYTES % (AUTO) 4.5 % (1.7-9.3); NEUTROPHILS # (AUTO) 15.6 K/uL (1.8-7.7); NEUTROPHILS % (AUTO) 86.2 % (40.0-70.0); PLATELET COUNT (AUTO) 216 K/uL (130-430); WHITE BLOOD COUNT (AUTO) 18.1 K/uL (4.8-10.8)
[2022-11-03] MEDS: PIPERACILLIN/TAZOBACTAM 2.25 GM/ DEX-IS 50 ML PREMIX IV SCH ×3 (06:00→22:20)
[2022-11-03] MEDS: INSULIN REGULAR, HUMAN 100 UNITS/ML, 3 ML VIAL (humuLIN R) SUBCUT PRN ×3 (06:02→17:28)
[2022-11-03 06:33] LABS: ALANINE AMINOTRANSFERASE 23 U/L (12-78); ALBUMIN 1.8 g/dL (3.4-4.8); ANION GAP 13 (5-15); ASPARTATE AMINOTRANSFERASE 20 U/L (10-37); CALCIUM 8.1 mg/dL (8.4-11.0); CARBON DIOXIDE 23 mmol/L (23-29); CREATININE 2.83 mg/dL (0.55-1.30); GLUCOSE 272 mg/dL (74-106); POTASSIUM 3.5 mmol/L (3.5-5.1); TOTAL BILIRUBIN 0.3 mg/dL (0.0-1.0); TOTAL PROTEIN, SERUM 5.7 g/dL (6.4-8.3); UREA NITROGEN, BLOOD 73 mg/dL (8-21)
[2022-11-03 07:26] LABS: SODIUM SERUM 160 mmol/L (136-145)
[2022-11-03 07:28] LABS: CHLORIDE 124 mmol/L (98-107)
[2022-11-03] MEDS: PANTOPRAZOLE SODIUM 40 MG/VIAL (PROTONIX) IVP SCH ×2 (08:56→22:19)
[2022-11-03] MEDS: NYSTATIN 15 GM TOPICAL POWDER TP SCH ×2 (08:56→22:19)
[2022-11-03] MEDS: CARVEDILOL 12.5 MG TABLET (COREG) NG SCH (08:57)
[2022-11-03] MEDS: DORZOLAMIDE HCL/TIMOLOL MAL. 10 ML EYE DROPS (COSOPT) EACH EYE SCH ×3 (10:39→22:19)
[2022-11-03] MEDS ORDERED: INSULIN GLARGINE 100 UNITS/ML, 10 ML VIAL SUBCUT ONE (10:45)
[2022-11-03] MEDS: D5/0.45 NS 1,000 ML IV SCH ×2 (11:29→20:45)
[2022-11-03] MEDS: ALBUMIN HUMAN 25% 50 ML IV SCH ×3 (14:24→22:19)
[2022-11-03] MEDS: FLUCONAZOLE 100 mg/ NS 50 ML IV SCH (18:35)
[2022-11-03] MEDS: LATANOPROST 2.5 ML DROPS (XALATAN) EACH EYE SCH (22:19)
[2022-11-03] MEDS: ENOXAPARIN SODIUM 30 MG/0.3 ML SYRINGE SUBCUT SCH (22:20)
[2022-11-04] VITALS (18 sets, daily range): BP systolic 107–142; PULSE 62–84; RESP 11–55; TEMP 96.8–97.6; O2SAT 94–100
[2022-11-04] MEDS: INSULIN REGULAR, HUMAN 100 UNITS/ML, 3 ML VIAL (humuLIN R) SUBCUT PRN ×5 (00:30→22:47)
[2022-11-04 05:28] LABS: BASOPHILS % (AUTO) 0.3 % (0.0-2.0); EOSINOPHILS # (AUTO) 0.2 K/uL (0.0-0.4); EOSINOPHILS % (AUTO) 1.9 % (0.0-4.0); HEMATOCRIT 37.9 % (36-48); HEMOGLOBIN 12.1 g/dL (12.0-16.0); LYMPHOCYTES # (AUTO) 1.5 K/uL (1.0-5.5); LYMPHOCYTES % (AUTO) 12.2 % (20.5-51.5); MEAN CORPUSCULAR HEMOGLOBIN 29 pg (27-31); MEAN CORPUSCULAR HGB CONC 32 % (32-36); MEAN CORPUSCULAR VOLUME 90 fL (79.0-98.0); MONOCYTES # (AUTO) 0.7 K/uL (0.0-1.0); MONOCYTES % (AUTO) 5.9 % (1.7-9.3); NEUTROPHILS # (AUTO) 9.8 K/uL (1.8-7.7); NEUTROPHILS % (AUTO) 79.7 % (40.0-70.0); PLATELET COUNT (AUTO) 199 K/uL (130-430); RED BLOOD CELL COUNT(AUTO) 4.21 MIL/uL (4.2-6.2); RED CELL DISTRIBUTION WIDTH 17.2 % (9.0-15.0); WHITE BLOOD COUNT (AUTO) 12.3 K/uL (4.8-10.8)
[2022-11-04 05:51] LABS: ALANINE AMINOTRANSFERASE 20 U/L (12-78); ALBUMIN 2.4 g/dL (3.4-4.8); ANION GAP 11 (5-15); ASPARTATE AMINOTRANSFERASE 16 U/L (10-37); CARBON DIOXIDE 24 mmol/L (23-29); CREATININE 2.53 mg/dL (0.55-1.30); GLUCOSE 267 mg/dL (74-106); POTASSIUM 3.3 mmol/L (3.5-5.1); SODIUM SERUM 157 mmol/L (136-145); TOTAL BILIRUBIN 0.5 mg/dL (0.0-1.0); TOTAL PROTEIN, SERUM 5.8 g/dL (6.4-8.3); UREA NITROGEN, BLOOD 53 mg/dL (8-21)
[2022-11-04 05:59] LABS: CHLORIDE 122 mmol/L (98-107)
[2022-11-04] MEDS: PIPERACILLIN/TAZOBACTAM 2.25 GM/ DEX-IS 50 ML PREMIX IV SCH ×3 (06:14→22:40)
[2022-11-04] MEDS: D5/0.45 NS 1,000 ML IV SCH (06:15)
[2022-11-04] MEDS: DORZOLAMIDE HCL/TIMOLOL MAL. 10 ML EYE DROPS (COSOPT) EACH EYE SCH ×3 (08:41→20:10)
[2022-11-04] MEDS: PANTOPRAZOLE SODIUM 40 MG/VIAL (PROTONIX) IVP SCH ×2 (08:41→20:10)
[2022-11-04] MEDS: NYSTATIN 15 GM TOPICAL POWDER TP SCH ×2 (08:42→20:11)
[2022-11-04] MEDS: INSULIN GLARGINE 100 UNITS/ML, 10 ML VIAL SUBCUT SCH (08:44)
[2022-11-04] MEDS ORDERED: POTASSIUM CHLORIDE 40 MEQ in D5W 250 ML IV ONE (09:15)
[2022-11-04] MEDS: D5W 1,000 ML IV SCH ×3 (09:15→17:48)
[2022-11-04 13:12] LABS: BASOPHILS % (AUTO) 0.4 % (0.0-2.0); EOSINOPHILS # (AUTO) 0.2 K/uL (0.0-0.4); EOSINOPHILS % (AUTO) 1.9 % (0.0-4.0); HEMATOCRIT 36.4 % (36-48); HEMOGLOBIN 11.8 g/dL (12.0-16.0); LYMPHOCYTES # (AUTO) 1.2 K/uL (1.0-5.5); LYMPHOCYTES % (AUTO) 11.1 % (20.5-51.5); MEAN CORPUSCULAR HEMOGLOBIN 29 pg (27-31); MEAN CORPUSCULAR HGB CONC 32 % (32-36); MEAN CORPUSCULAR VOLUME 89 fL (79.0-98.0); MONOCYTES # (AUTO) 0.6 K/uL (0.0-1.0); MONOCYTES % (AUTO) 5.6 % (1.7-9.3); NEUTROPHILS # (AUTO) 8.8 K/uL (1.8-7.7); PLATELET COUNT (AUTO) 193 K/uL (130-430); RED BLOOD CELL COUNT(AUTO) 4.08 MIL/uL (4.2-6.2); RED CELL DISTRIBUTION WIDTH 16.7 % (9.0-15.0); WHITE BLOOD COUNT (AUTO) 10.8 K/uL (4.8-10.8)
[2022-11-04] MEDS: FLUCONAZOLE 100 mg/ NS 50 ML IV SCH (18:45)
[2022-11-04] MEDS: LATANOPROST 2.5 ML DROPS (XALATAN) EACH EYE SCH (20:10)
[2022-11-04] MEDS: ENOXAPARIN SODIUM 30 MG/0.3 ML SYRINGE SUBCUT SCH (20:10)
[2022-11-05 04:55] LABS: BASOPHILS % (AUTO) 0.2 % (0.0-2.0); EOSINOPHILS # (AUTO) 0.2 K/uL (0.0-0.4); EOSINOPHILS % (AUTO) 2.5 % (0.0-4.0); HEMATOCRIT 34.5 % (36-48); HEMOGLOBIN 11.2 g/dL (12.0-16.0); LYMPHOCYTES # (AUTO) 1.7 K/uL (1.0-5.5); LYMPHOCYTES % (AUTO) 19.2 % (20.5-51.5); MEAN CORPUSCULAR HEMOGLOBIN 29 pg (27-31); MEAN CORPUSCULAR HGB CONC 32 % (32-36); MEAN CORPUSCULAR VOLUME 89 fL (79.0-98.0); MONOCYTES # (AUTO) 0.6 K/uL (0.0-1.0); MONOCYTES % (AUTO) 7.4 % (1.7-9.3); NEUTROPHILS # (AUTO) 6.1 K/uL (1.8-7.7); NEUTROPHILS % (AUTO) 70.7 % (40.0-70.0); PLATELET COUNT (AUTO) 181 K/uL (130-430); RED BLOOD CELL COUNT(AUTO) 3.87 MIL/uL (4.2-6.2); RED CELL DISTRIBUTION WIDTH 16.5 % (9.0-15.0); WHITE BLOOD COUNT (AUTO) 8.6 K/uL (4.8-10.8)
[2022-11-05] MEDS: D5W 1,000 ML IV SCH ×2 (05:05→14:45)
[2022-11-05] MEDS: PIPERACILLIN/TAZOBACTAM 2.25 GM/ DEX-IS 50 ML PREMIX IV SCH (05:05)
[2022-11-05 05:06] LABS: ALANINE AMINOTRANSFERASE 18 U/L (12-78); ALBUMIN 1.9 g/dL (3.4-4.8); ANION GAP 10 (5-15); ASPARTATE AMINOTRANSFERASE 17 U/L (10-37); CALCIUM 7.5 mg/dL (8.4-11.0); CARBON DIOXIDE 25 mmol/L (23-29); CHLORIDE 115 mmol/L (98-107); CREATININE 2.19 mg/dL (0.55-1.30); GLUCOSE 320 mg/dL (74-106); POTASSIUM 3.8 mmol/L (3.5-5.1); SODIUM SERUM 150 mmol/L (136-145); TOTAL BILIRUBIN 0.4 mg/dL (0.0-1.0); TOTAL PROTEIN, SERUM 5.2 g/dL (6.4-8.3); UREA NITROGEN, BLOOD 42 mg/dL (8-21)
[2022-11-05] MEDS: INSULIN REGULAR, HUMAN 100 UNITS/ML, 3 ML VIAL (humuLIN R) SUBCUT PRN ×3 (06:03→17:44)
[2022-11-05 08:00] VITALS: BP_SYST 127; PULSE 71; RESP 18; TEMP 97.1; O2SAT 97
[2022-11-05] MEDS: PANTOPRAZOLE SODIUM 40 MG/VIAL (PROTONIX) IVP SCH ×2 (08:44→21:34)
[2022-11-05] MEDS: DORZOLAMIDE HCL/TIMOLOL MAL. 10 ML EYE DROPS (COSOPT) EACH EYE SCH ×3 (08:45→21:35)
[2022-11-05] MEDS: NYSTATIN 15 GM TOPICAL POWDER TP SCH ×2 (08:47→21:36)
[2022-11-05] MEDS: INSULIN GLARGINE 100 UNITS/ML, 10 ML VIAL SUBCUT SCH (08:54)
[2022-11-05 12:47] VITALS: BP_SYST 139; PULSE 70; RESP 17; TEMP 97; O2SAT 97
[2022-11-05 16:15] VITALS: BP_SYST 132; PULSE 72; RESP 18; TEMP 97.2; O2SAT 96
[2022-11-05] MEDS: FLUCONAZOLE 100 mg/ NS 50 ML IV SCH (18:46)
[2022-11-05 19:30] VITALS: BP_SYST 116; PULSE 68; RESP 18; TEMP 97.8; O2SAT 96
[2022-11-05] MEDS: LATANOPROST 2.5 ML DROPS (XALATAN) EACH EYE SCH (21:35)
[2022-11-05] MEDS: ENOXAPARIN SODIUM 30 MG/0.3 ML SYRINGE SUBCUT SCH (21:35)
[2022-11-05] MEDS: 0.45% NS 500 ML IV SCH (21:37)
[2022-11-06] VITALS: BP_SYST 110; PULSE 64; RESP 16; TEMP 97.3; O2SAT 95
[2022-11-06] MEDS: 0.45% NS 500 ML IV SCH (00:15)
[2022-11-06 05:24] LABS: BASOPHILS % (AUTO) 0.4 % (0.0-2.0); EOSINOPHILS # (AUTO) 0.2 K/uL (0.0-0.4); EOSINOPHILS % (AUTO) 2.3 % (0.0-4.0); HEMATOCRIT 33.6 % (36-48); HEMOGLOBIN 10.9 g/dL (12.0-16.0); MEAN CORPUSCULAR HEMOGLOBIN 29 pg (27-31); MEAN CORPUSCULAR HGB CONC 32 % (32-36); MEAN CORPUSCULAR VOLUME 89 fL (79.0-98.0); MONOCYTES # (AUTO) 0.7 K/uL (0.0-1.0); MONOCYTES % (AUTO) 9.2 % (1.7-9.3); NEUTROPHILS # (AUTO) 4.6 K/uL (1.8-7.7); NEUTROPHILS % (AUTO) 61.1 % (40.0-70.0); PLATELET COUNT (AUTO) 191 K/uL (130-430); RED BLOOD CELL COUNT(AUTO) 3.76 MIL/uL (4.2-6.2); RED CELL DISTRIBUTION WIDTH 16.3 % (9.0-15.0); WHITE BLOOD COUNT (AUTO) 7.6 K/uL (4.8-10.8)
[2022-11-06 06:01] LABS: ALANINE AMINOTRANSFERASE 20 U/L (12-78); ALBUMIN 1.8 g/dL (3.4-4.8); ANION GAP 11 (5-15); ASPARTATE AMINOTRANSFERASE 15 U/L (10-37); CALCIUM 7.4 mg/dL (8.4-11.0); CARBON DIOXIDE 24 mmol/L (23-29); CHLORIDE 112 mmol/L (98-107); CREATININE 1.93 mg/dL (0.55-1.30); GLUCOSE 135 mg/dL (74-106); POTASSIUM 3.5 mmol/L (3.5-5.1); SODIUM SERUM 147 mmol/L (136-145); TOTAL BILIRUBIN 0.4 mg/dL (0.0-1.0); TOTAL PROTEIN, SERUM 5.2 g/dL (6.4-8.3); UREA NITROGEN, BLOOD 31 mg/dL (8-21)
[2022-11-06 08:00] VITALS: BP_SYST 109; PULSE 64; RESP 18; TEMP 96; O2SAT 96
[2022-11-06] MEDS: INSULIN GLARGINE 100 UNITS/ML, 10 ML VIAL SUBCUT SCH (09:00)
[2022-11-06] MEDS: PANTOPRAZOLE SODIUM 40 MG/VIAL (PROTONIX) IVP SCH ×2 (09:32→22:43)
[2022-11-06] MEDS: DORZOLAMIDE HCL/TIMOLOL MAL. 10 ML EYE DROPS (COSOPT) EACH EYE SCH ×3 (09:33→22:43)
[2022-11-06] MEDS: NYSTATIN 15 GM TOPICAL POWDER TP SCH ×2 (09:34→22:44)
[2022-11-06 12:26] VITALS: BP_SYST 111; PULSE 66; RESP 17; TEMP 96.8; O2SAT 97
[2022-11-06 14:45] LABS: PROTHROMBIN TIME 9.9 SECS (9.5-12.5)
[2022-11-06 16:00] VITALS: BP_SYST 110; PULSE 65; RESP 17; TEMP 96.4; O2SAT 96
[2022-11-06] MEDS: FLUCONAZOLE 100 mg/ NS 50 ML IV SCH (18:46)
[2022-11-06 19:00] VITALS: BP_SYST 112; PULSE 94; RESP 16; TEMP 96.6; O2SAT 96
[2022-11-06 20:00] VITALS: BP_SYST 112; PULSE 64; RESP 16; TEMP 96.6; O2SAT 96
[2022-11-06] MEDS: 0.45% NS 1,000 ML IV SCH (20:15)
[2022-11-06] MEDS: LATANOPROST 2.5 ML DROPS (XALATAN) EACH EYE SCH (22:43)
[2022-11-06] MEDS: ENOXAPARIN SODIUM 30 MG/0.3 ML SYRINGE SUBCUT SCH (22:44)
[2022-11-06] MEDS: INSULIN REGULAR, HUMAN 100 UNITS/ML, 3 ML VIAL (humuLIN R) SUBCUT PRN (23:55)
[2022-11-07 03:59] VITALS: TEMP 96.8
[2022-11-07] MEDS: 0.45% NS 1,000 ML IV SCH ×2 (06:19→11:47)
[2022-11-07 07:06] LABS: BASOPHILS % (AUTO) 0.4 % (0.0-2.0); EOSINOPHILS # (AUTO) 0.2 K/uL (0.0-0.4); EOSINOPHILS % (AUTO) 2.2 % (0.0-4.0); HEMATOCRIT 38.8 % (36-48); HEMOGLOBIN 12.4 g/dL (12.0-16.0); LYMPHOCYTES # (AUTO) 1.7 K/uL (1.0-5.5); LYMPHOCYTES % (AUTO) 23.2 % (20.5-51.5); MEAN CORPUSCULAR HEMOGLOBIN 29 pg (27-31); MEAN CORPUSCULAR HGB CONC 32 % (32-36); MEAN CORPUSCULAR VOLUME 90 fL (79.0-98.0); MONOCYTES # (AUTO) 0.7 K/uL (0.0-1.0); MONOCYTES % (AUTO) 8.9 % (1.7-9.3); NEUTROPHILS # (AUTO) 4.8 K/uL (1.8-7.7); NEUTROPHILS % (AUTO) 65.3 % (40.0-70.0); PLATELET COUNT (AUTO) 244 K/uL (130-430); RED BLOOD CELL COUNT(AUTO) 4.32 MIL/uL (4.2-6.2); RED CELL DISTRIBUTION WIDTH 16.2 % (9.0-15.0); WHITE BLOOD COUNT (AUTO) 7.4 K/uL (4.8-10.8)
[2022-11-07 07:39] LABS: ALANINE AMINOTRANSFERASE 22 U/L (12-78); ALBUMIN 2.1 g/dL (3.4-4.8); ANION GAP 10 (5-15); ASPARTATE AMINOTRANSFERASE 19 U/L (10-37); CALCIUM 7.9 mg/dL (8.4-11.0); CARBON DIOXIDE 26 mmol/L (23-29); CHLORIDE 111 mmol/L (98-107); GLUCOSE 146 mg/dL (74-106); POTASSIUM 3.3 mmol/L (3.5-5.1); SODIUM SERUM 147 mmol/L (136-145); TOTAL BILIRUBIN 0.3 mg/dL (0.0-1.0); UREA NITROGEN, BLOOD 28 mg/dL (8-21)
[2022-11-07 07:49] VITALS: BP_SYST 143; PULSE 73; RESP 20; TEMP 96.8; O2SAT 98
[2022-11-07 07:54] LABS: CREATININE 1.85 mg/dL (0.55-1.30)
[2022-11-07] MEDS: PANTOPRAZOLE SODIUM 40 MG/VIAL (PROTONIX) IVP SCH ×2 (08:45→22:34)
[2022-11-07] MEDS: INSULIN GLARGINE 100 UNITS/ML, 10 ML VIAL SUBCUT SCH (08:47)
[2022-11-07] MEDS: NYSTATIN 15 GM TOPICAL POWDER TP SCH ×2 (08:48→22:35)
[2022-11-07] MEDS: DORZOLAMIDE HCL/TIMOLOL MAL. 10 ML EYE DROPS (COSOPT) EACH EYE SCH ×3 (08:50→22:34)
[2022-11-07 09:40] VITALS: O2SAT 98
[2022-11-07] MEDS: INSULIN REGULAR, HUMAN 100 UNITS/ML, 3 ML VIAL (humuLIN R) SUBCUT PRN ×2 (11:40→17:13)
[2022-11-07 12:56] VITALS: BP_SYST 139; PULSE 69; RESP 18; TEMP 97.1; O2SAT 96
[2022-11-07] MEDS: KCL 20 mEq in 100 mL (PREMIX) 100 ML IV SCH ×2 (13:09→15:16)
[2022-11-07 13:43] LABS: BASOPHILS # (AUTO) 0.1 K/uL (0.0-0.2); BASOPHILS % (AUTO) 0.9 % (0.0-2.0); EOSINOPHILS # (AUTO) 0.1 K/uL (0.0-0.4); EOSINOPHILS % (AUTO) 1.8 % (0.0-4.0); HEMATOCRIT 36.9 % (36-48); HEMOGLOBIN 11.9 g/dL (12.0-16.0); LYMPHOCYTES # (AUTO) 1.3 K/uL (1.0-5.5); LYMPHOCYTES % (AUTO) 17.1 % (20.5-51.5); MEAN CORPUSCULAR HEMOGLOBIN 29 pg (27-31); MEAN CORPUSCULAR HGB CONC 32 % (32-36); MEAN CORPUSCULAR VOLUME 89 fL (79.0-98.0); MONOCYTES # (AUTO) 0.7 K/uL (0.0-1.0); MONOCYTES % (AUTO) 8.8 % (1.7-9.3); NEUTROPHILS # (AUTO) 5.6 K/uL (1.8-7.7); NEUTROPHILS % (AUTO) 71.4 % (40.0-70.0); PLATELET COUNT (AUTO) 247 K/uL (130-430); RED BLOOD CELL COUNT(AUTO) 4.14 MIL/uL (4.2-6.2); RED CELL DISTRIBUTION WIDTH 16.2 % (9.0-15.0); WHITE BLOOD COUNT (AUTO) 7.8 K/uL (4.8-10.8)
[2022-11-07 16:46] VITALS: BP_SYST 140; PULSE 70; RESP 19; TEMP 97; O2SAT 98
[2022-11-07] MEDS: FLUCONAZOLE 100 mg/ NS 50 ML IV SCH (18:45)
[2022-11-07 20:00] VITALS: BP_SYST 134; PULSE 73; RESP 18; TEMP 97; O2SAT 98
[2022-11-07] MEDS: LATANOPROST 2.5 ML DROPS (XALATAN) EACH EYE SCH (22:34)
[2022-11-07] MEDS: ENOXAPARIN SODIUM 30 MG/0.3 ML SYRINGE SUBCUT SCH (22:34)
[2022-11-08] VITALS (7 sets, daily range): BP systolic 140–156; PULSE 60–70; RESP 16–18; TEMP 97–97.4; O2SAT 96–98
[2022-11-08 06:01] LABS: ALANINE AMINOTRANSFERASE 20 U/L (12-78); ALBUMIN 2.1 g/dL (3.4-4.8); ANION GAP 11 (5-15); ASPARTATE AMINOTRANSFERASE 18 U/L (10-37); CALCIUM 8.1 mg/dL (8.4-11.0); CARBON DIOXIDE 25 mmol/L (23-29); CHLORIDE 114 mmol/L (98-107); CREATININE 1.54 mg/dL (0.55-1.30); GLUCOSE 138 mg/dL (74-106); PHOSPHORUS 3.3 mg/dL (2.7-4.5); POTASSIUM 3.3 mmol/L (3.5-5.1); SODIUM SERUM 150 mmol/L (136-145); TOTAL BILIRUBIN 0.3 mg/dL (0.0-1.0); TOTAL PROTEIN, SERUM 5.9 g/dL (6.4-8.3); UREA NITROGEN, BLOOD 22 mg/dL (8-21)
[2022-11-08 06:02] LABS: BASOPHILS % (AUTO) 0.4 % (0.0-2.0); EOSINOPHILS # (AUTO) 0.1 K/uL (0.0-0.4); EOSINOPHILS % (AUTO) 1.9 % (0.0-4.0); HEMATOCRIT 33.8 % (36-48); LYMPHOCYTES # (AUTO) 1.6 K/uL (1.0-5.5); LYMPHOCYTES % (AUTO) 22.8 % (20.5-51.5); MEAN CORPUSCULAR HEMOGLOBIN 29 pg (27-31); MEAN CORPUSCULAR HGB CONC 33 % (32-36); MEAN CORPUSCULAR VOLUME 89 fL (79.0-98.0); MONOCYTES # (AUTO) 0.7 K/uL (0.0-1.0); MONOCYTES % (AUTO) 9.6 % (1.7-9.3); NEUTROPHILS # (AUTO) 4.6 K/uL (1.8-7.7); NEUTROPHILS % (AUTO) 65.3 % (40.0-70.0); PLATELET COUNT (AUTO) 276 K/uL (130-430); RED BLOOD CELL COUNT(AUTO) 3.82 MIL/uL (4.2-6.2); RED CELL DISTRIBUTION WIDTH 15.8 % (9.0-15.0)
[2022-11-08 06:16] LABS: ERYTHROCYTE SEDIMENTATION RATE 78 MM/HR (0-20)
[2022-11-08] MEDS: KCL 40 mEq in D5W 1000 mL 1,000 ML IV SCH ×2 (08:00→18:18)
[2022-11-08] MEDS: KCL 20 mEq in 100 mL (PREMIX) 100 ML IV SCH ×2 (10:34→10:45)
[2022-11-08] MEDS: NYSTATIN 15 GM TOPICAL POWDER TP SCH ×2 (10:40→21:35)
[2022-11-08] MEDS: DORZOLAMIDE HCL/TIMOLOL MAL. 10 ML EYE DROPS (COSOPT) EACH EYE SCH ×3 (10:40→21:37)
[2022-11-08] MEDS: PANTOPRAZOLE SODIUM 40 MG/VIAL (PROTONIX) IVP SCH ×2 (10:40→22:02)
[2022-11-08] MEDS: INSULIN GLARGINE 100 UNITS/ML, 10 ML VIAL SUBCUT SCH (10:44)
[2022-11-08] MEDS: FLUCONAZOLE 100 mg/ NS 50 ML IV SCH (18:17)
[2022-11-08] MEDS: LATANOPROST 2.5 ML DROPS (XALATAN) EACH EYE SCH (21:38)
[2022-11-08] MEDS: ENOXAPARIN SODIUM 30 MG/0.3 ML SYRINGE SUBCUT SCH (21:38)
[2022-11-09] MEDS: INSULIN REGULAR, HUMAN 100 UNITS/ML, 3 ML VIAL (humuLIN R) SUBCUT PRN ×5 (00:05→23:59)
[2022-11-09 00:24] VITALS: BP_SYST 139; PULSE 68; RESP 20; TEMP 97.7; O2SAT 96
[2022-11-09] MEDS: KCL 40 mEq in D5W 1000 mL 1,000 ML IV SCH ×2 (04:00→13:15)
[2022-11-09 05:07] LABS: BASOPHILS # (AUTO) 0.1 K/uL (0.0-0.2); EOSINOPHILS # (AUTO) 0.5 K/uL (0.0-0.4); EOSINOPHILS % (AUTO) 5.2 % (0.0-4.0); HEMATOCRIT 33.4 % (36-48); LYMPHOCYTES # (AUTO) 2.1 K/uL (1.0-5.5); LYMPHOCYTES % (AUTO) 22.9 % (20.5-51.5); MEAN CORPUSCULAR HEMOGLOBIN 29 pg (27-31); MEAN CORPUSCULAR HGB CONC 33 % (32-36); MEAN CORPUSCULAR VOLUME 89 fL (79.0-98.0); MONOCYTES # (AUTO) 0.8 K/uL (0.0-1.0); MONOCYTES % (AUTO) 9.1 % (1.7-9.3); NEUTROPHILS # (AUTO) 5.7 K/uL (1.8-7.7); NEUTROPHILS % (AUTO) 61.8 % (40.0-70.0); PLATELET COUNT (AUTO) 339 K/uL (130-430); RED BLOOD CELL COUNT(AUTO) 3.76 MIL/uL (4.2-6.2); RED CELL DISTRIBUTION WIDTH 16.2 % (9.0-15.0); WHITE BLOOD COUNT (AUTO) 9.2 K/uL (4.8-10.8)
[2022-11-09 05:23] LABS: ERYTHROCYTE SEDIMENTATION RATE 73 MM/HR (0-20)
[2022-11-09 05:24] LABS: ALANINE AMINOTRANSFERASE 19 U/L (12-78); ALBUMIN 2.1 g/dL (3.4-4.8); ANION GAP 8 (5-15); ASPARTATE AMINOTRANSFERASE 14 U/L (10-37); CALCIUM 7.9 mg/dL (8.4-11.0); CARBON DIOXIDE 28 mmol/L (23-29); CHLORIDE 113 mmol/L (98-107); CREATININE 1.65 mg/dL (0.55-1.30); GLUCOSE 233 mg/dL (74-106); PHOSPHORUS 2.3 mg/dL (2.7-4.5); POTASSIUM 3.7 mmol/L (3.5-5.1); SODIUM SERUM 149 mmol/L (136-145); TOTAL BILIRUBIN 0.2 mg/dL (0.0-1.0); TOTAL PROTEIN, SERUM 5.9 g/dL (6.4-8.3); UREA NITROGEN, BLOOD 19 mg/dL (8-21)
[2022-11-09 11:36] VITALS: BP_SYST 115; PULSE 61; RESP 18; TEMP 98.6; O2SAT 97
[2022-11-09] MEDS: DORZOLAMIDE HCL/TIMOLOL MAL. 10 ML EYE DROPS (COSOPT) EACH EYE SCH ×3 (13:03→21:00)
[2022-11-09] MEDS: PANTOPRAZOLE SODIUM 40 MG/VIAL (PROTONIX) IVP SCH ×2 (13:04→20:59)
[2022-11-09] MEDS: NYSTATIN 15 GM TOPICAL POWDER TP SCH ×2 (13:05→21:33)
[2022-11-09] MEDS: INSULIN GLARGINE 100 UNITS/ML, 10 ML VIAL SUBCUT SCH (13:17)
[2022-11-09 17:32] VITALS: BP_SYST 131; PULSE 69; RESP 18; TEMP 98; O2SAT 96
[2022-11-09 19:30] VITALS: O2SAT 98
[2022-11-09 20:00] VITALS: BP_SYST 148; PULSE 79; RESP 18; TEMP 97.2; O2SAT 98
[2022-11-09] MEDS ORDERED: FLUCONAZOLE 100 mg/ NS 50 ML IV SCH (20:00)
[2022-11-09] MEDS: LATANOPROST 2.5 ML DROPS (XALATAN) EACH EYE SCH (21:33)
[2022-11-09] MEDS: ENOXAPARIN SODIUM 30 MG/0.3 ML SYRINGE SUBCUT SCH (21:36)
[2022-11-10] VITALS (7 sets, daily range): BP systolic 128–145; PULSE 70–84; RESP 16–18; TEMP 97.4–98.9; O2SAT 97–100
[2022-11-10] MEDS: KCL 40 mEq in D5W 1000 mL 1,000 ML IV SCH ×2 (03:47→14:29)
[2022-11-10 05:11] LABS: BASOPHILS % (AUTO) 0.5 % (0.0-2.0); EOSINOPHILS # (AUTO) 0.2 K/uL (0.0-0.4); EOSINOPHILS % (AUTO) 1.7 % (0.0-4.0); HEMATOCRIT 33.9 % (36-48); HEMOGLOBIN 11.2 g/dL (12.0-16.0); LYMPHOCYTES # (AUTO) 2.3 K/uL (1.0-5.5); LYMPHOCYTES % (AUTO) 25.4 % (20.5-51.5); MEAN CORPUSCULAR HEMOGLOBIN 29 pg (27-31); MEAN CORPUSCULAR HGB CONC 33 % (32-36); MEAN CORPUSCULAR VOLUME 89 fL (79.0-98.0); MONOCYTES # (AUTO) 0.8 K/uL (0.0-1.0); NEUTROPHILS # (AUTO) 5.6 K/uL (1.8-7.7); NEUTROPHILS % (AUTO) 63.4 % (40.0-70.0); PLATELET COUNT (AUTO) 334 K/uL (130-430); RED CELL DISTRIBUTION WIDTH 15.8 % (9.0-15.0); WHITE BLOOD COUNT (AUTO) 8.9 K/uL (4.8-10.8)
[2022-11-10 05:34] LABS: ERYTHROCYTE SEDIMENTATION RATE 54 MM/HR (0-20)
[2022-11-10 05:35] LABS: ALANINE AMINOTRANSFERASE 21 U/L (12-78); ALBUMIN 2.1 g/dL (3.4-4.8); ANION GAP 7 (5-15); ASPARTATE AMINOTRANSFERASE 18 U/L (10-37); CALCIUM 8.1 mg/dL (8.4-11.0); CARBON DIOXIDE 30 mmol/L (23-29); CHLORIDE 109 mmol/L (98-107); CREATININE 1.62 mg/dL (0.55-1.30); GLUCOSE 176 mg/dL (74-106); PHOSPHORUS 2.5 mg/dL (2.7-4.5); POTASSIUM 3.7 mmol/L (3.5-5.1); SODIUM SERUM 146 mmol/L (136-145); TOTAL BILIRUBIN 0.2 mg/dL (0.0-1.0); TOTAL PROTEIN, SERUM 6.1 g/dL (6.4-8.3); UREA NITROGEN, BLOOD 20 mg/dL (8-21)
[2022-11-10] MEDS: INSULIN REGULAR, HUMAN 100 UNITS/ML, 3 ML VIAL (humuLIN R) SUBCUT PRN ×3 (06:10→17:58)
[2022-11-10] MEDS: LATANOPROST 2.5 ML DROPS (XALATAN) EACH EYE SCH (09:26)
[2022-11-10] MEDS: NYSTATIN 15 GM TOPICAL POWDER TP SCH (09:27)
[2022-11-10] MEDS: INSULIN GLARGINE 100 UNITS/ML, 10 ML VIAL SUBCUT SCH (09:33)
[2022-11-10] MEDS: PANTOPRAZOLE SODIUM 40 MG/VIAL (PROTONIX) IVP SCH (10:21)
[2022-11-10] MEDS ORDERED: INSU100V7 SUBCUT (12:27)
[2022-11-10] MEDS ORDERED: INSU100V9 SUBCUT (12:27)
== END 2022-11-10 18:45 | DRG 871 ==
LOC: SED 07:04 → SIC 12:16 → SMU 14:41 → SIC 14:51 → STU 11-04 17:30 → SMU 11-07 17:35
PROVIDERS: ADMIT Family Medicine; ATTEND Specialist
DX: A41.9 Sepsis, unspecified organism (principal); E11.00 Type 2 diabetes mellitus with hyperosmolarity without nonketotic hyperglycemic-hyperosmolar coma (NKHHC); E43 Unspecified severe protein-calorie malnutrition; G93.41 Metabolic encephalopathy; E87.0 Hyperosmolality and hypernatremia; N39.0 Urinary tract infection, site not specified; N17.9 Acute kidney failure, unspecified; Z68.28 Body mass index [BMI] 28.0-28.9, adult; E86.0 Dehydration; F03.90 Unspecified dementia, unspecified severity, without behavioral disturbance, psychotic disturbance, mood disturbance, and anxiety; E83.51 Hypocalcemia; D64.9 Anemia, unspecified; I10 Essential (primary) hypertension; E88.09 Other disorders of plasma-protein metabolism, not elsewhere classified
CPT/HCPCS: 36415; 36600; 70450-TC; 71045; 76376; 80048; 80053; 80307; 81000; 82009; 82140; 82550; 82803; 82962; 83605; 83735; 83880; 83970; 84100; 84484; 85025; 85610-TC; 85651-TC; 85730-TC; 87040; 87081; 87086; 87186-TC; 92610-GN; 93005; 96361; 96365; 96367; 96372; 97110-GP; 97530-GP; 99291; C9113; G0378; G0480; G0481; G0482; J0696; J1450; J1650; J1815; J2543; J3370; J3480; J7030; J7050; J7060; P9046